=== PATIENT | female | born 1930 | race Caucasian/White ===

== ENCOUNTER 2016-09-29 16:46 | Emergency (ER) | payer OTHER ==
[2016-09-29] MEDS ORDERED: FLUORESCEIN STRIP 1 MG/STRIP STRIP ONE (18:10)
--- NOTE | 2016-09-29 19:00 | ER NURSING DOCUMENTATION ---
Nurse's Notes [facility] Name:Lashonda Barr Age:86 yrs Sex:Female :1930 Arrival Date:09/29/2016 Time:16:46 Bed2 Private MD:Leon Gerard Diagnosis:Decreased Vision Presentation: 09/29 16:58 Acuity: CRISTIAN 3 st 16:58 Presenting complaint: Patient states: pt has right eye pain. States it feels scratched. st pt sat down hard in the shower this AM and that is when her eye started to hurt. Transition of care: Home. Mechanism of Injury: Fall. The patient denies any loss of vision. 16:58 Method Of Arrival: Private Vehicle st Triage Assessment: 16:58 General: Appears uncomfortable, Behavior is cooperative. Pain: Complains of pain in st right eye Pain currently is 4 out of 10 on a pain scale. EENT: Eyes are tearing on outer aspect of conjuctiva of right eye no visible damage to the right eye. pt does not want to keep her eye open. . Historical: - Allergies: pt is not able to tell me her medical hx or medications. ; - Tetanus: < 10 years. - Ebola Screening: : Patient denies exposure to infectious person. Patient denies travel to an Ebola-affected area in the 21 days before illness onset. . - Immunization history: Pneumococcal vaccine status is unknown. - Social history: Smoking status: Patient states was never smoker of tobacco. Patient/guardian denies using alcohol, marijuana. Screenin:39 Infectious Disease Risk None. Abuse screen: Denies threats or abuse. Denies injuries st from another. pt feels safe at home. Nutritional screening: No deficits noted. Assessment: 18:05 General: Dr. Beaulieu at bedside for an eye exam.. st Vital Signs: 16:58 BP 127 / 92; Pulse 79; Pulse Ox 92% ; Pain 4/10; st Visual Acuity: 17:38 ; pt staes her eye sight is bad any way but states she does not think there is any st change. 18:16 Left Eye Visual acuity 20/40, ; Right Eye Visual acuity 20/50, ; Both Eyes Visual st acuity 20/50; With Lenses; ED Course: 16:47 Patient arrived in ED. ama 16:47 Leon Gerard MD is Private Physician. ama 16:49 James Beaulieu MD is Attending Physician. tl1 16:58 Miley Sr RN is Primary Nurse. st 16:[address] 17:39 Valuables Remains with patient Patient has correct armband on for positive st identification. Bed in low position. Call light in reach. Side rails up X2. 18:50 Arnol Del Rio MD is Referral Physician. tl1 Administered Medications: No medications were administered Outcome: 18:52 Discharge ordered by . tl1 18:59 Discharged to home ambulatory. bw2 18:59 Condition: good 18:59 Discharge instructions given to patient, Instructed on discharge instructions, follow up and referral plans. Demonstrated understanding of instructions. 18:59 Patient left the ED. bw2 Signatures: Miley Sr RN RN Philippe Lord, Reg Reg James Figueroa MD MD tl1 Nenoscooter Marilyn bw2
--- NOTE | 2016-09-29 19:00 | ER PHYSICIAN DOCUMENTATION ---
Physician Documentation [facility] Name:Lashonda Barr Age:86 yrs Sex:Female :1930 Arrival Date:09/29/2016 Time:16:46 Bed2 Private MD:Leon Gerard ED, Tom Disposition: 10/01 07:16 Chart complete. tl1 Disposition: 09/29/16 18:52 Discharged to Home/Self Care. Impression: Decreased Vision. - Condition is Good. - Discharge Instructions: BLURRED VISION. - Medical Reconciliation form form. - Follow up: Arnol Del Rio MD; When: 4- 6 days; Reason: Recheck today's complaints. - Problem is new. - Symptoms have improved. HPI: 09/29 16:49 This 86 yrs old Female presents to ER with complaints of Eye Pain - R. tl1 16:49 The patient is experiencing pain, to the right eye. tl1 16:49 She fell in the shower this morning about 0830 and landed on her buttocks. She had no tl1 initial apparent injury, but a short time later noted mild gradually worsening right eye pain. She had some brief blurred vision which has resolved. She denied floaters or flashing lights. Since then there has been mild progression of her pain, which concerns her. She denied redness or photophobia. Vision seems to be at baseline. No d/c from her eyes. Left eye is asymptomatic.. Historical: - Allergies: pt is not able to tell me her medical hx or medications. ; - Tetanus: < 10 years. - Ebola Screening: : Patient denies exposure to infectious person. Patient denies travel to an Ebola-affected area in the 21 days before illness onset. . - Immunization history: Pneumococcal vaccine status is unknown. - Social history: Smoking status: Patient states was never smoker of tobacco. Patient/guardian denies using alcohol, marijuana. ROS: 16:49 Eyes: Positive for pain, Negative for injury or acute deformity, discharge, foreign tl1 body sensation, icterus, photophobia, redness, swelling, tearing, visual disturbance. 16:49 All other systems are negative. 16:49 Neuro: Negative for headache, Jaw claudication. tl1 Exam: 16:49 Visual Acuity: I have reviewed the nursing documentation. tl1 16:49 Constitutional: This is a well developed, well nourished patient who is awake, alert, tl1 and in no acute distress. 16:49 Head/Face: Normocephalic, atraumatic. 16:49 Eyes: Periorbital structures: appear normal, Pupils: equal, round, and reactive to light and accomodation, Extraocular movements: intact throughout, Conjunctiva: normal, Corneas: no acute changes, no evidence of abrasion, no foreign body, Sclera: no appreciated abnormality, Anterior chamber: normal, Lids and lashes: appear normal, Nystagmus: is not appreciated. 16:49 ENT: Exam is negative for acute changes. 16:49 Head/face: No TTP over temporal artery.. tl1 Vital Signs: 16:58 BP 127 / 92; Pulse 79; Pulse Ox 92% ; Pain 4/10; st Visual Acuity: 17:38 ; pt staes her eye sight is bad any way but states she does not think there is any st change. 18:16 Left Eye Visual acuity 20/40, ; Right Eye Visual acuity 20/50, ; Both Eyes Visual st acuity 20/50; With Lenses; MDM: 16:49 Patient medically screened. tl1 17:30 Differential diagnosis: Corneal abrasion of Corneal ulcer of Foreign body in Acute tl1 iritis of Acute glaucoma in Ultraviolet keratitis in. Data reviewed: vital signs, nurses notes, and as a result, I will discharge patient. Counseling: I had a detailed discussion with the patient and/or guardian regarding: the historical points, exam findings, and any diagnostic results supporting the discharge/admit diagnosis, the need for outpatient follow up, to return to the emergency department if symptoms worsen or persist or if there are any questions or concerns that arise at home. Response to treatment: There is no appreciated change of the patient's symptoms at this time, and as a result, I will discharge patient. ED course: The cause of her symptoms is not at all clear. Pupils are equal and I doubt angle closure glaucoma, temporal arteritis, iritis or other serious pathology at this time. I think she is safe to f/u with Dr Del Rio in 3-5 days. I encouraged her to return to the ED immediately for any worsening of her vision or other concerning symptoms.. Dispensed Medications: No medications were administered Signatures: Miley Sr RN RN st Leigh, Tom, MD MD tl1 Marilyn Arthur bw2
== END 2016-09-29 19:00 | disposition home or self-care (01) ==
LOC: ER 16:46
DX: H54.7 Unspecified visual loss (principal); H57.11 Ocular pain, right eye; Z79.899 Other long term (current) drug therapy
CPT/HCPCS: 99282

== ENCOUNTER 2016-10-24 09:02 | Day surgery (SDC) | payer OTHER ==
[2016-10-24] MEDS ORDERED: LIDOCAINE HCL 1% 20 ML VIAL ONE ×2 (10:06→11:55)
[2016-10-24] MEDS ORDERED: BUPIVACAINE HCL/PF 0.5% 30 ML VIAL ONE (10:06)
[2016-10-24] MEDS ORDERED: ceFAZolin 1 GM/10 ML VIAL ONE (11:16)
[2016-10-24] MEDS ORDERED: BACITRACIN 14 APP/14 GM TUBE TOPICAL ONE (12:00)
[2016-10-24 12:31] VITALS: TEMP 97.7
[2016-10-24 12:37] VITALS: RESP 18
[2016-10-24 12:57] VITALS: BP 115/80; PULSE 85; O2SAT 88
--- NOTE | 2016-10-26 14:35 | PREOPERATIVE H&P ---
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 There are 2 ulcerated areas with some black and white necrotic tissue in the ulcer. These were both approximately 1 x 2 cm in size. The patient is a 86 year old female here for wound assessment. Reason for encounter: wound check . The cause of the wound was trauma and venous stasis . Location: right leg . The wound has been present for 5 months . The course has been stable . The last tetanus shot was year(s) ago (9) . Current treatment regimen includes: wound vac . Results of current therapy: slightly improved . Problem List/Past Medical (Ziggy Patterson M.D.; 10/10/2016 12:09 PM) Venous stasis ulcer of left heel (I83.024)09/17/2016 Peripheral vascular disease of extremity (I73.9)07/2016 Pulmonary nodules (R91.8) Osteopenia (M85.80)03/2014 RELL (obstructive sleep apnea) (G47.33) Ventricular tachycardia, non-sustained (I47.2) Tricuspid regurgitation (I07.1) Pulmonary hypertension (I27.2) Diastolic dysfunction, left ventricle (I51.9) Depression, controlled (F32.9) Urinary incontinence (788.30) (R32) Vitamin B12 deficiency (E53.8) Proteinuria (791.0) (R80.9) Hypoxemia (799.02) (R09.02) Diabetic nephropathy with proteinuria (E11.21)10/2007 As above. Colon polyp (211.3) (K63.5)09/2007 Diabetic ulcer of lower leg (E11.622) Non-healing ulcer of lower leg, unspecified laterality, limited to breakdown of skin (L97.901) Chronic venous hypertension w ulceration, right (I87.311) See above. 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 Remains on [id number] antihistamines as needed. Feels that her symptoms are tolerable. Stasis dermatitis of left lower extremity due to peripheral venous hypertension (I87.322) Chronic stasis changes and with evidence of dermatitis involving left lower extremity. Lotion 2 times per day. Will add triamcinolone cream. Further recommendations will depend upon her course. Elevate legs. Gentle compression. Spinal stenosis, multilevel (M48.00) Postmenopausal status (Z78.0) Insomnia (780.52) (G47.00) Edema (R60.9) Constipation, acute (K59.00) Allergies (Ziggy Patterson M.D.; 10/10/2016 12:10 PM) Santyl *DERMATOLOGICALS* Dermatitis. [place] Dust Pollens Medication History (Ziggy Patterson M.D.; 10/10/2016 12:10 PM) AmLODIPine Besylate (2.5MG Tablet, 1 (one) Tablet Oral daily, Taken starting ) Active. (cardiol) Aspirin Low Dose (81 Tablet, 1 PO daily, Taken starting 01/04/2007) Active. Atenolol (50MG Tablet, 1 (one) Tablet Oral daily, Taken starting 06/26/2013) Active. (cardiol) Coumadin (5MG Tablet, 1 (one and a half) to 2 (two) Oral daily as directed by physician, Taken starting 09/20/2016) Active. DULoxetine HCl (40MG Capsule DR Part, 1 (one) Oral daily, Taken starting 2016) Active. Fiber Choice (1.5GM Tablet Chewable, 4 tabs Oral daily) Active. Furosemide (20MG Tablet, 2 (two) Oral daily, Taken starting 04/06/2016) Active. ((Cardiology.)) Klor-Con 10 (10MEQ Tablet ER, 1 tab Oral twice daily, Taken starting 04/11/2015 ) Active. Losartan Potassium (100MG Tablet, 1 Oral daily) Active. Magnesium Oxide (250MG Tablet, 2 (two) Oral daily, Taken starting 10/27/2012) Active. MetFORMIN HCl ER (500MG Tablet ER 24HR, 2 (two) Oral two times daily, Taken starting 04/06/2016) Active. Multi-Vitamin (1 PO daily, Taken starting 01/04/2007) Active. O-2 Suspensory (2-3 L/min by NC daily, Taken starting 08/06/2016) Active. (Dx: COPD. Pulm HTN.; Wear O2 24 hours per day. 3L/min at night and with activity. 2L /min at rest.; Needs a light weight portable unit with O2 conservation.) OneTouch Ultra Blue (1 (one) In Vitro daily, as directed by physician, Taken starting 05/10/2016) Active. OneTouch UltraSoft Lancets (1 (one) as directed by physician, Taken starting ) Active. Pramipexole Dihydrochloride (0.25MG Tablet, 1-4 Oral at bedtime) Active. PreserVision AREDS (1 Oral daily) Active. Refresh Tears (0.5% Solution, Ophthalmic at least twice per day) Active. SF 5000 Plus (1.1% Cream, brush teeth with this cream Dental at bedtime) Active. Triamcinolone Acetonide (0.1% Cream, apply to affected skin Cream External two times daily, Taken starting 08/31/2016) Active. (Rub in well.) Tylenol Extra Strength (500MG Tablet, 1-2 Oral four times daily, as needed [ RARELY]) Active. Vitamin B Complex (1 tab Oral daily) Active. Vitamin B-12 (1000MCG Tablet, 1 (one) Oral daily, Taken starting 12/12/2009) Active. Vitamin D (1000UNIT Capsule, 1 (one) Capsule Oral daily, Taken starting 2013) Active. Past Surgical History (Ziggy Patterson M.D.; 10/10/2016 12:10 PM) Hysterectomy; [id number] For endometrial/uterine cancer. 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 Post vitrectomy / peel OD on 11/17/07 (Dr. Parker) Appendectomy 1970s. Cataract Surgery Cataract extraction with PC IOL OD 12/20/98 and OS 01/03/99 ( Prochoda). YAG laser posterior capsulotomy OD 11/28/00 and OS 08/08/01 (Prochoda). Cholecystectomy 1970s. Review of Systems (Ziggy Patterson M.D.; 10/10/2016 12:08 PM) General Present- Feeling well. Not Present- Chills and Fever. Physical Exam (Ziggy Patterson M.D.; 10/10/2016 12:23 PM) Integumentary Wounds Ulcers - Type - Decubitus. Location: Location - Left Lower Extremity - Note: post. calf. Ulcers - Length - 2 cm. Note: there are two ulcers the same size. Width - 1 cm. Depth - 3 mm. Description - Note: There is black and white necrotic debris in the wound. Problem #1 Location - Right Lower Extremity - leg. Response to Treatment - partial response to therapy. Note: The lower leg ulcer has granulation tissue with a few areas surrounding with some necrotic material. Above this area are two areas of breakdown from the wound vac. Post. there are two areas similiar to the left side which have white adherent eschar. Assessment & Plan (Ziggy Patterson M.D.; 10/10/2016 12:28 PM) Venous ulcer of leg (I83.009) Current Plans APPLY MULTLAY COMPRS LWR LEG (40028) Non-Selective Debridement including Wet to Dry Dressings, Enzymatic, and Abrasive Cleaning (14443) Non-healing ulcer of lower leg, unspecified laterality, limited to breakdown of skin (L97.901) Current Plans APPLY MULTLAY COMPRS LWR LEG (34051) Non-Selective Debridement including Wet to Dry Dressings, Enzymatic, and Abrasive Cleaning (92936) Follow up in 5 days Note:I think the ulcers on the left calf region will need sharp debridement in the next week or so. She has some areas of breakdown from the wound VAC on the right side. For the time being we will use a silver sorb dressing to the left calf region and do a compressive wrap on the left side. On the right side we will stop the wound VAC. We'll use a honey alginate on the lower leg wound. The other areas will be treated with silver sorb. I will discuss this with Dr. Foss when I see him next. Signed by Ziggy Patterson M.D. (10/10/2016 12:29 PM) LIZETH
== END 2016-10-24 13:25 | disposition home or self-care (01) ==
LOC: SDS 09:02
PROVIDERS: ATTEND Podiatrist Foot & Ankle Surgery
DX: I83.009 Varicose veins of unspecified lower extremity with ulcer of unspecified site (principal); M85.80 Other specified disorders of bone density and structure, unspecified site; G47.33 Obstructive sleep apnea (adult) (pediatric); I07.1 Rheumatic tricuspid insufficiency; I27.2 Other secondary pulmonary hypertension; I51.9 Heart disease, unspecified; E11.21 Type 2 diabetes mellitus with diabetic nephropathy; E03.9 Hypothyroidism, unspecified; I10 Essential (primary) hypertension; J44.9 Chronic obstructive pulmonary disease, unspecified; I48.91 Unspecified atrial fibrillation; E78.00 Pure hypercholesterolemia, unspecified; I87.311 Chronic venous hypertension (idiopathic) with ulcer of right lower extremity; Z79.899 Other long term (current) drug therapy
CPT/HCPCS: J0690

== ENCOUNTER 2016-10-25 12:31 | Emergency (ER) | payer OTHER ==
[2016-10-25 13:52] LABS: HEMATOCRIT 32.7 % (36.0-48.0); HEMOGLOBIN 10.5 g/dL (12.0-16.0); WHITE BLOOD COUNT 10.6 X 10^3uL (3.9-10.7)
[2016-10-25 13:53] LABS: BASOPHIL# 0.1 X 10^3uL (0.0-0.1); BASOPHILS 0.5 % (0.0-2.0); BLOOD UREA NITROGEN 35 mg/dL (7-17); CALCIUM 9.1 mg/dL (8.4-10.2); CHLORIDE 104 mmol/L (98-107); EOSINOPHILS 2.9 % (0.0-6.0); EOSINOPHILS# 0.3 X 10^3uL (0.0-0.4); GLUCOSE 144 mg/dL (70-100); LYMPHOCYTES 8.6 % (20.0-40.0); LYMPHOCYTES# 0.9 X 10^3uL (0.8-3.8); MEAN CORPUS. HGB CONCENTRATION 32.1 g/dL (32.0-36.0); MEAN CORPUSCULAR HEMOGLOBIN 27.2 pg (29.0-35.0); MEAN PLATELET VOLUME 6.9 fL (7.4-10.4); MONOCYTES 6.6 % (2.0-10.0); MONOCYTES# 0.7 X 10^3uL (0.2-1.0); NEUTROPHILS 81.4 % (54.0-75.0); NEUTROPHILS# 8.7 X 10^3uL (2.6-6.7); PLATELET COUNT 353 X 10^3uL (130-440); POTASSIUM 4.8 mmol/L (3.5-5.1); SODIUM 140 mmol/L (137-145)
[2016-10-25 13:57] LABS: INR 1.9
--- NOTE | 2016-10-25 13:58 | CT REPORT ---
HISTORY: Status post fall. COMPARISON: None. TECHNIQUE: Dose reduction technique was utilized. Axial non-contrasted images obtained from skull vertex throug h foramen magnum. Coronal reconstructions. FINDINGS: The ventricles, sulci, and cisterns are symmetric, but moderately prominent compatible with age relat ed atrophy. Nonspecific mild patchy periventricular and subcortical white matter low density which gi criss this patient's age is likely reflective of chronic small vessel ischemic changes. No CT evidenc e of acute infarction. No evidence of acute intracranial hemorrhage. No intracranial mass. Vertebr al soft tissue swelling on left extending into adjacent forehead. The visualized paranasal sinuses a nd mastoid air cells appear clear. Calvarium is intact. IMPRESSION: No acute intracranial abnormality. Age-appropriate cerebral atrophy. Mild chronic small vessel ischemic changes. Facial soft tissue swelling. Final Electronic Signature: This report was electronically signed by Ac Berrios MD on 10/25/2016 1: 55 PM. denise / / [facility] [phone]
[2016-10-25 14:04] LABS: RED BLOOD COUNT 3.86 X 10^6uL (4.20-6.10); RED CELL DISTRIBUTION WIDTH 14.7 % (11.5-14.5)
[2016-10-25] MEDS ORDERED: HOME MEDICATION LIST NEEDED 1 EA EACH MC ONE (14:23)
[2016-10-25] MEDS ORDERED: NORMAL SALINE 1,000 ML IV SCH (15:00)
--- NOTE | 2016-10-25 16:22 | RADIOLOGY REPORT ---
HISTORY: Fall. Trauma. COMPARISON: None. FINDINGS: 1 view of the chest obtained. The heart is mildly enlarged. There is diffuse airways thickening. No p neumothorax or lung contusion is demonstrated. There is no definite pleural effusion. The chest wall appears grossly intact. In the inferomedial left lung, there is a nodular density measuring approximately 5 mm in size. This is likely calcified. IMPRESSION: 1. No acute traumatic findings in the chest. 2. Mild cardiomegaly. 3. 5 mm nodular density in the inferomedial left chest, possibly a calcified left lung granuloma. Rec ommend chest CT without contrast for confirmation. Final Electronic Signature: This report was electronically signed by Robert Jaime MD on 10/25/2016 4:19 PM. dequan / / [facility] [phone]
--- NOTE | 2016-10-25 16:25 | CT REPORT ---
HISTORY: Trauma. TECHNIQUE: Axial CT acquisition to the orbits without intravenous contrast. FINDINGS: Large amount of left periorbital soft tissue swelling and edema extending into the adjacent forehead and subjacent base/cheek subcutaneous tissues. No CT evidence of bony orbital fracture. Paranasal sin uses are clear. The visualized mandible appears intact. Mild left-sided maxillary sinus wall thickeni ng which may be related to previous trauma or chronic sinusitis. IMPRESSION: No CT evidence of orbital fracture. Large amount of periorbital soft tissue swelling and edema Final Electronic Signature: This report was electronically signed by Ac Berrios MD on 10/25/2016 4: 23 PM. denise / / [facility] [phone]
--- NOTE | 2016-10-25 18:31 | ER NURSING DOCUMENTATION ---
Nurse's Notes [facility] Name:Lashonda Barr Age:86 yrs Sex:Female :1930 Arrival Date:10/25/2016 Time:12:31 BedTrauma-A Private MD: Diagnosis:Periorbital Swelling;Hematoma of Head;Subconjunctival Hemorrhage (eye);Abrasion;Fall;Difficulty Walking Presentation: 10/25 12:36 Presenting complaint: Patient states: Mechanical fall with facial injurys. Care prior lp to arrival: None. Mechanism of Injury: Fall Ground level fall. Trauma event details: Injury occurred in the [facility]. 12:36 Acuity: CRISTIAN 2 lp 12:36 Method Of Arrival: EMS: 410 lp 12:54 Transition of care: Home. lp Triage Assessment: 12:53 General: Appears in no apparent distress. lp Historical: - Allergies: Santyl; - Home Meds: 1. Glucerna oral liqd 2. Pradaxa 150 mg oral cap 1 cap 3. Janumet 50-500 mg oral tab 4. triamcinolone acetonide 0.1 % topical crea 5. duloxetine 30 mg oral cpDR 1 cap once daily - Tetanus: < 10 years < 10 years. - Ebola Screening: : Patient negative for fever greater than or equal to 101.5 degrees Fahrenheit, and additional compatible Ebola Virus Disease symptoms. Patient denies exposure to infectious person. Patient denies travel to an Ebola-affected area in the 21 days before illness onset. . - Immunization history: Pneumococcal vaccine is up to date, Flu Vaccine < 1 year. - Social history: Smoking status: Patient states former smoker of tobacco. Screenin:43 Abuse screen: Denies threats or abuse. Denies injuries from another. Nutritional lp screening: No deficits noted. Tuberculosis screening: No symptoms or risk factors identified. 12:53 Infectious Disease Risk None. lp Primary Survey: 12:39 Breathing/Chest: Respiratory pattern: regular, Respiratory effort: spontaneous, Chest lp inspection: symmetrical rise and fall of the chest. Circulation: Cardiac rhythm:. Secondary Survey: 12:42 HEENT: Eyes: Ecchymosis noted left eye. Raccoon eyes noted. left eye. Nose: bleeding lp noted to bilateral nares. Assessment: 12:38 General: Appears uncomfortable, Behavior is appropriate for age. Pain: Complains of lp pain in left cheek and left eye Pain currently is 4 out of 10 on a pain scale. Respiratory: Airway is patent Breath sounds are clear bilaterally. Vital Signs: 12:42 BP 90 / 49; Pulse 82; Resp 16; Temp 97.2(TE); Pulse Ox 92% on 2 lpm NC; Weight 59.87 lp kg; Height 64 in. (162.56 cm); Pain 3/10; 13:34 Pulse 84 MON; Resp 18; Pulse Ox 98% ; lp 14:11 BP 113 / 68 (auto/); tg 14:14 Pulse 82 MON; Resp 25; Pulse Ox 100% ; tg 16:14 Pulse 78 MON; Resp 16; Pulse Ox 98% ; tg 16:22 BP 118 / 70 (auto/); lp 16:24 Pulse 77 MON; Resp 19; lp 16:59 Pulse 94 MON; Resp 19; lp 18:01 BP 100 / 68; Pulse 80; Resp 16; Pulse Ox 96% on 2 lpm NC; lp 18:02 BP 118 / 70; Pulse 79; Pulse Ox 92% on 2 lpm NC; lp 12:42 Body Mass Index 22.66 (59.87 kg, 162.56 cm) lp Trauma Score (Adult): 12:43 Eye Response: spontaneous(1); Verbal Response: oriented(1); Motor Response: obeys lp commands(2); Systolic BP: > 89 mm Hg(4); Respiratory Rate: 10 to 29 per min(4); Benkelman Score: 15; Trauma Score: 12 ED Course: 12:31 Patient arrived in ED. dp 12:36 Renetta Rich, RN is Primary Nurse. lp 12:38 Triage completed. lp 12:44 Patient has correct armband on for positive identification. Placed in gown. Bed in low lp position. Call light in reach. Side rails up X 1. 12:45 EKG done. (by ED staff). Reviewed by Clayton Tran MD. tg 12:46 Clayton Tran MD is Attending Physician. jm 12:53 Valuables Remains with patient. lp 13:09 EKG attached lp 14:32 Ophelia Esparza MD is Admitting Physician. jm 16:[address] talisha Administered Medications: 17:59 CANCELLED (Other Intervention Used): HYDROcodone-acetaminophen (5mg/325 mg) 1-2 tabs 2 lp tabs PO once; Q 4-6 H prn pain (Disp.#6 / six only) 17:59 Drug: HYDROcodone-acetaminophen 5 mg-325 mg 2 tabs; Route: PO; lp 18:18 Follow up: Response: No adverse reaction; Medication administered at discharge. lp Point of Care Testing: Blood Glucose: 12:50 Blood Glucose: 110 mg/dL; lpr Ranges: Outcome: 12:53 Instructed on lp 14:33 Decision to Admit by Provider. dulce 17:36 ER care complete, transfer ordered by . dulce 18:01 Transferred: Patient will be transferred to: [facility]. Facility lp Acceptance Time: October 25, 2016 at 17:50 Patient's face sheet was faxed to accepting facility. Face Sheet included patient's name, address, age, gender, contact information and insurance information. Patient will be transported by: [facility] ground. 18:02 Condition: good lp 18:17 Report given to Report to Serene [facility] Medical 18:30 Patient left the ED. lp Signatures: Murali Navarro, RN RN Miley Puente, RN Renetta Brown RN RN lp Meyer, John, MD MD jm Roberts, Leslie, RN RN lpr Abbott, Laura lea Palacios, Denise dp
--- NOTE | 2016-10-25 18:31 | ER PHYSICIAN DOCUMENTATION ---
Physician Documentation [facility] Name:Lashonda Barr Age:86 yrs Sex:Female :1930 Arrival Date:10/25/2016 Time:12:31 BedTrauma-A Private MD: Clayton Wolf Disposition: 10/25/16 17:36 Transfer ordered to [facility]. Diagnosis are Periorbital Swelling, Hematoma of Head, Subconjunctival Hemorrhage (eye), Abrasion, Fall, Difficulty Walking. - Reason for transfer: Specialty. - Accepting physician is Dr. Eller. - Condition is Fair. - Problem is new. - Symptoms have improved. COBRA Form completed? Yes Transfer - Mode of Transportation Ambulance HPI: 10/25 13:41 This 86 yrs old Female presents to ER via EMS with complaints of Fall Injury. 13:41 Details of fall: The patient fell from an upright position. Onset: The symptom(s)/episode began/occurred 12 hour(s) ago. Associated injuries: The patient sustained injury to the head. Associated signs and symptoms: Pertinent positives: head injury and abrasions. , Loss of consciousness: the patient experienced no loss of consciousness. Severity of symptoms: in the emergency department the symptoms are actually worse. The patient has not experienced similar symptoms in the past. The patient has been recently seen by a physician: Dr. Dr. Foss for debridement of her Diabetic leg ulcers. . Pt had surgery yesterday and got tangled in her oxygen cord and fell, hitting her L eye. She thought, "this will leave a mode" and went back to bed. At that time, she noted no vision problems. She woke up w it swollen. She didn't want to come in, but it continued to swell and now it's shut. She denies any vision issues. No BURCIAGA, neck pain, n/v, or tingling. Pt did injury bilateral forearms and has some skin tears. . Historical: - Allergies: Santyl; - Home Meds: 1. Glucerna oral liqd 2. Pradaxa 150 mg oral cap 1 cap 3. Janumet 50-500 mg oral tab 4. triamcinolone acetonide 0.1 % topical crea 5. duloxetine 30 mg oral cpDR 1 cap once daily - Tetanus: < 10 years < 10 years. - Ebola Screening: : Patient negative for fever greater than or equal to 101.5 degrees Fahrenheit, and additional compatible Ebola Virus Disease symptoms. Patient denies exposure to infectious person. Patient denies travel to an Ebola-affected area in the 21 days before illness onset. . - Immunization history: Pneumococcal vaccine is up to date, Flu Vaccine < 1 year. - Social history: Smoking status: Patient states former smoker of tobacco. ROS: 13:47 Constitutional: Negative for fever, malaise. jm 13:47 Eyes: Positive for swelling. 13:47 Neck: Negative for injury or acute deformity. 13:47 Cardiovascular: Negative for chest pain. 13:47 Respiratory: Negative for cough, shortness of breath. 13:47 Abdomen/GI: Negative for abdominal pain. 13:47 MS/extremity: Positive for injury or acute deformity, abrasion. 13:47 Skin: Positive for avulsion. 13:47 Neuro: Negative for dizziness, headache. 13:47 All other systems are negative. 14:03 ENT: Negative for injury or acute deformity. 14:03 Back: Negative for injury or acute deformity. Exam: 14:04 Constitutional: The patient appears alert, awake. 14:04 Head/face: Noted is contusion, ecchymosis. 14:04 Eyes: Periorbital structures: swelling, ecchymosis, that is marked, on the left upper eyelid and left lower eyelid, Pupils: equal, round, and reactive to light and accomodation, Extraocular movements: intact throughout. 14:04 ENT: Nose: is normal, Mouth: is normal. 14:04 Neck: Thyroid: appears normal, Trachea: is midline with no obvious abnormalities. 14:04 Cardiovascular: Rate: normal, Rhythm: regular. 14:04 Respiratory: Respirations: normal, Breath sounds: are normal. 14:04 Abdomen/GI: Bowel sounds: normal, Palpation: abdomen is soft and non-tender. 14:04 Musculoskeletal/extremity: multiple skin tears on arms. I did not unwrap the ankles. . 14:04 Skin: Appearance: ecchymosis, noted on the, left eye, injury, avulsion(s), A moderate sized 14:04 Neuro: Mentation: is normal, Memory: is normal. 14:04 Neuro: Cerebellar function: 14:04 Psych: Behavior/mood is pleasant, cooperative, Affect is calm. Vital Signs: 12:42 BP 90 / 49; Pulse 82; Resp 16; Temp 97.2(TE); Pulse Ox 92% on 2 lpm NC; Weight 59.87 lp kg; Height 64 in. (162.56 cm); Pain 3/10; 13:34 Pulse 84 MON; Resp 18; Pulse Ox 98% ; lp 14:11 BP 113 / 68 (auto/); tg 14:14 Pulse 82 MON; Resp 25; Pulse Ox 100% ; tg 16:14 Pulse 78 MON; Resp 16; Pulse Ox 98% ; tg 16:22 BP 118 / 70 (auto/); lp 16:24 Pulse 77 MON; Resp 19; lp 16:59 Pulse 94 MON; Resp 19; lp 18:01 BP 100 / 68; Pulse 80; Resp 16; Pulse Ox 96% on 2 lpm NC; lp 18:02 BP 118 / 70; Pulse 79; Pulse Ox 92% on 2 lpm NC; lp 12:42 Body Mass Index 22.66 (59.87 kg, 162.56 cm) lp Trauma Score (Adult): 12:43 Eye Response: spontaneous(1); Verbal Response: oriented(1); Motor Response: obeys lp commands(2); Systolic BP: > 89 mm Hg(4); Respiratory Rate: 10 to 29 per min(4); Veronica Score: 15; Trauma Score: 12 MDM: 12:34 Patient medically screened. 13:09 EKG attached lp 14:31 Differential diagnosis: closed head injury, contusion, fracture, multiple trauma. Data reviewed: vital signs, nurses notes, old medical records, lab test result(s), EKG, radiologic studies, and as a result, I will admit patient. Test interpretation: by ED physician or midlevel provider: ECG. Counseling: I had a detailed discussion with the patient and/or guardian regarding: the historical points, exam findings, and any diagnostic results supporting the discharge/admit diagnosis, lab results, radiology results, the need for further work-up and treatment in the hospital. ECG:. Physician consultation: Ophelia Esparza MD regarding admission, and will see patient shortly, later today. ED course: Pt was clearly a fall risk before she fell today and now she has a huge black eye that is swollen shut, making her even more of a fall risk. Pt will need obs admission while she heals. . 17:20 ED course: Dr. Esparza would be the admitting physician. She has come in the ER to eval the pt and is not comfortable admitting even after a normal CT orbits and Ophthalmology consult. Pt only has a black eye and some scattered abrasions and skin tears. Dr. Esparza fears for her safety on the floor for various reasons including more falls, rebleeding risks, and delayed bleeding risks. I offered to admit pt to Dr. Patterson and she could do the medicine consult, but she denied wanting to do that either. She would like pt evaluated by [facility] trauma surgeon. I expressed she didn't need this, but I will try to admit [facility] hospitalist service. . 10/25 13:54 Order name: BASIC METABOLIC PANEL; Complete Time: 14:20 [facility] 10/25 13:59 Order name: PROTIME/INR; Complete Time: 14:20 [facility] 10/25 14:05 Order name: CBC AUTO DIF, MDIF/RMOR IF IND; Complete Time: 14:20 [facility] 10/25 14:00 Order name: CAT SCAN; HEAD W/O CON [id number]; Complete Time: 14:03 [facility] 10/25 16:23 Order name: CHEST; SINGLE VIEW [id number] [facility] 10/25 16:25 Order name: CAT SCAN; ORBIT/SELLA [id number] [facility] 10/25 12:48 Order name: 12-lead EKG; Complete Time: 16:21 10/25 12:48 Order name: Pulse Ox Continuous; Complete Time: 16:21 EC:31 Rhythm is regular. QRS [place] is Normal. QRS interval is normal. QT interval is normal. No Q waves. T waves are Normal. No ST changes noted. Dispensed Medications: 17:59 CANCELLED (Other Intervention Used): HYDROcodone-acetaminophen (5mg/325 mg) 1-2 tabs 2 lp tabs PO once; Q 4-6 H prn pain (Disp.#6 / six only) 17:59 Drug: HYDROcodone-acetaminophen 5 mg-325 mg 2 tabs; Route: PO; lp 18:18 Follow up: Response: No adverse reaction; Medication administered at discharge. lp Point of Care Testing: Blood Glucose: 12:50 Blood Glucose: 110 mg/dL; lpr Ranges: Critical Glucose Levels:Adult <50 mg/dl or >400 mg/dl <40 mg/dl or >180 mg/dl Signatures: Renetta Rich RN RN lp Meyer, John, MD MD jm
== END 2016-10-25 18:31 | disposition short-term general hospital (02) ==
LOC: ER 12:31
DX: S00.12XA Contusion of left eyelid and periocular area, initial encounter (principal); S00.83XA Contusion of other part of head, initial encounter; S51.811A Laceration without foreign body of right forearm, initial encounter; S51.812A Laceration without foreign body of left forearm, initial encounter; W01.0XXA Fall on same level from slipping, tripping and stumbling without subsequent striking against object, initial encounter; Y92.032 Bedroom in apartment as the place of occurrence of the external cause; Y93.01 Activity, walking, marching and hiking; Z98.890 Other specified postprocedural states; E11.9 Type 2 diabetes mellitus without complications; Z79.899 Other long term (current) drug therapy; Z79.01 Long term (current) use of anticoagulants; Z74.3 Need for continuous supervision; Z91.81 History of falling
CPT/HCPCS: 70450; 70480; 71010; 80048; 85025; 85610; 93005; 99285; A0425; A0427; A0429